=== PATIENT | male | born 1975 | race Caucasian/White ===

== ENCOUNTER 2016-10-09 18:40 | Emergency (ER) | payer BC ==
[2016-10-09 18:43] VITALS: BP 151/95; PULSE 84; TEMP 98.7; BMI 33.7
[2016-10-09] MEDS ORDERED: predniSONE 20 MG TABLET (UD) PO ONE (19:01)
[2016-10-09] MEDS ORDERED: KETOROLAC TROMETHAMINE 60 MG/2 ML VIAL IM ONE (19:02)
[2016-10-09] MEDS ORDERED: KETOROLAC TROMETHAMINE 60 MG/2 ML VIAL ONE (19:05)
[2016-10-09] MEDS ORDERED: predniSONE 20 MG TABLET (UD) ONE (19:06)
--- NOTE | 2016-10-09 19:11 | PDOC ---
History of Present Illness - General Chief Complaint: Bite Stated Complaint: Allergic Reaction Time Seen by Provider: 10/09/16 18:45 - History of Present Illness Initial Comments: 10/09/16 19:03 CHIEF COMPLAINT: bee sting HISTORY OF PRESENT ILLNESS: 41 yo M with no PMH presents to [facility] s/p bee sting. Patient states he has minimal pain but is concerned about the swelling of his lip as well as a rash to his right arm that developed after the sting. Patient also states he has some mosquito bites to his bilateral legs from a recent trip to the [facility]. He denies any swelling to his tongue or throat, and denies any shortness of breath or difficulty breathing or speaking. PAST MEDICAL HISTORY: Denies past medical history FAMILY HISTORY: Denies SOCIAL HISTORY: Denies tobacco, alcohol, illicit drug use. SURGICAL HISTORY: Denies ALLERGIES: No known drug allergies REVIEW OF SYSTEMS General/Constitutional: Denies fever or chills. Denies weakness, weight change. HEENT: Denies difficulty speaking, swallowing, or breathing. Denies change in vision. Denies ear pain or discharge. Cardiovascular: Denies chest pain or shortness of breath. Respiratory: Denies any difficulty breathing. Gastrointestinal: Denies nausea, vomiting, diarrhea or constipation. Denies rectal bleeding. Genitourinary: Denies dysuria, frequency, or change in urination. Musculoskeletal: Denies joint or muscle swelling or pain. Denies neck or back pain. Skin: Swollen lip, rash to R arm. PHYSICAL EXAM General Appearance: Well-appearing, appropriately dressed. No apparent distress. HEENT: Marked swollen upper lip. No swelling to lower lip, tongue, uvula, or tonsils. EOMI, PERRLA, normal voice, pharynx normal. No conjunctival pallor. No photophobia, scleral icterus. Respiratory/Chest: Lungs CTAB. Cardiovascular: RRR. S1, S2. Gastrointestinal/Abdominal: Normal bowel sounds. Abdomen soft, non-distended. No tenderness or rebound tenderness. No organomegaly, pulsatile mass, guarding , hernia, hepatomegaly, splenomegaly. Musculoskeletal/Extremities: Macular erythematous rash approximately 5cm x 3cm to anterior aspect of upper R arm. Normal inspection. FROM of all extremities, normal capillary refill. Pelvis Stable. No CVA tenderness. No tenderness to extremities, pedal edema, swelling, erythema or deformity. Integumentary: Appropriate color, dry, warm. No cyanosis, erythema, jaundice or rash Neurologic: cobol programmer II-XII intact. Fully oriented, alert. Appropriate mood/affect. Motor strength 5/5. No appreciable EOM palsy, facial droop or sensory deficit. Past History - Past Medical History Allergies/Adverse Reactions: Allergies Allergy/AdvReac Type Severity Reaction Status Date / Time No Known Allergies Allergy Verified 10/09/16 18:44 Home Medications: Ambulatory Orders Clobetasol Prop 0.05% Top Cr [Temovate (Nf)] 1 applic TP BID PRN #1 tube Epinephrine [Epipen 2-Joseph] 0.3 mg IJ ASDIR #1 kit 10/09/16 Prednisone 10 mg PO ASDIR #15 tab 10/09/16 Other medical history: NONE - Surgical History Appendectomy: Yes - Psycho/Social/Smoking Cessation Hx Anxiety: No Suicidal Ideation: No Smoking History: Never smoked Have you smoked in the past 12 months: No Hx Alcohol Use: No Drug/Substance Use Hx: No Substance Use Type: None *Physical Exam - Vital Signs Last Vital Signs Temp Pulse Resp BP Pulse Ox 98.7 F 84 20 151/95 98 10/09/16 18:41 10/09/16 18:41 10/09/16 18:41 10/09/16 18:41 10/09/16 18:41 Medical Decision Making - Medical Decision Making 10/09/16 19:11 41 yo M with no PMH presents to [facility] s/p bee sting. -60 mg prednisone -60 mg Toradol IM *DC/Admit/Observation/Transfer Diagnosis at time of Disposition: Bee sting Qualifiers: Encounter type: initial encounter Injury intent: accidental or unintentional Qualified Code(s): T63.441A - Toxic effect of venom of bees, accidental ( unintentional), initial encounter - Discharge Dispostion Disposition: HOME Admit: No - Prescriptions Prescriptions: Epinephrine [Epipen 2-Joseph] 0.3 mg IJ ASDIR #1 kit Prednisone 10 mg PO ASDIR #15 tab Clobetasol Prop 0.05% Top Cr [Temovate (Nf)] 1 applic TP BID PRN #1 tube PRN Reason: For Itching - Referrals Referrals: Rhys Adam MD [Primary Care Provider] - - Patient Instructions Printed Discharge Instructions: DI for Insect Bites and Stings Additional Instructions: Please take medication as directed. You may use ice for any pain relief. If you experience ANY swelling of your tongue, back of your throat, or any part of your airway, use the epipen immediately and return to the emergency room. Otherwise, follow up with your primary care doctor by the end of this week.
== END 2016-10-09 19:30 | disposition home or self-care (01) ==
LOC: JERFT 18:40
PROC: 3E0233Z Introduction of Anti-inflammatory into Muscle, Percutaneous Approach (ICD-10-PCS; principal; 2016-10-09)
DX: T63.441A Toxic effect of venom of bees, accidental (unintentional), initial encounter (principal); R22.9 Localized swelling, mass and lump, unspecified; R21 Rash and other nonspecific skin eruption; Y92.89 Other specified places as the place of occurrence of the external cause
CPT/HCPCS: 99281-25

== ENCOUNTER 2020-04-03 15:31 | Emergency (ER) | payer BC | END 2020-04-03 17:44 | disposition home or self-care (01) | LOC: JVIRT 15:31 | DX: Z11.52 Encounter for screening for COVID-19 (principal) | CPT/HCPCS: C9803; G2012-GT; U0003 ==

== ENCOUNTER 2020-04-22 12:52 | Emergency (ER) | payer BC | END 2020-04-22 14:55 | disposition home or self-care (01) | LOC: JVIRT 12:52 | DX: Z11.52 Encounter for screening for COVID-19 (principal) | CPT/HCPCS: C9803; G2012-GT; U0003 ==